=== PATIENT | female | born 1980 ===

== ENCOUNTER 2018-03-27 09:20 | Inpatient (IN) | payer OTHER ==
[~2018-03-27] VITALS: Ht 162.6 cm; Wt 115.5 kg
[2018-03-27] VITALS (28 sets, daily range): BP systolic 95–148; BP diastolic 42–83; PULSE 74–127; TEMP 98–99
[2018-03-27] MEDS ORDERED: PRENATAL MVI (10:02)
[2018-03-27 10:25] LABS: BASO % 0.2 % (0.0-2.0); EOS # 0.1 (0.0-0.7); EOS % 0.6 % (0-4.0); GRAN % 78.3 % (42.2-75.2); HEMOGLOBIN 12.4 g/dl (12.5-16.0); LYMPH # 1.9 (1.2-3.4); LYMPH % 13.3 % (20.0-51.0); MEAN CELL VOLUME 83 fl (80.0-100.0); MEAN CORPUSCULAR HEMOGLOBIN 28 pg (27.0-31.0); MEAN CORPUSCULAR HGB CONC 34 g/dl (33.0-37.0); MEAN PLATELET VOLUME 9.4 fl (7.4-10.4); MONO # 0.9 (0.1-0.6); MONO % 6.5 % (1.7-9.3); PLATELET COUNT 274 K/mm3 (130-400); RED BLOOD COUNT 4.47 M/mm3 (4.10-5.30); REDCELL DISTRIBUTION WIDTH-CV 14.3 % (11.5-14.5)
[2018-03-27 10:56] LABS: HIV 1/2 Antibodies Non-Reactive; HIV-1p24 Antigen Non-Reactive
[2018-03-27 16:28] LABS: COLLECTION METHOD CATHETER
[2018-03-27 16:38] LABS: PH 6 (5-8); URINE APPEARANCE Hazy; URINE BACTERIA None Seen /hpf; URINE BILIRUBIN Negative (NEGATIVE); URINE BLOOD 2+ (NEGATIVE); URINE CALCIUM OXALATE CRYSTAL Present /hpf; URINE COLOR Yellow; URINE GLUCOSE Negative (NEGATIVE); URINE KETONE Negative (NEGATIVE); URINE LEUKOCYTE ESTERASE 1+ (NEGATIVE); URINE NITRATE Negative (NEGATIVE); URINE PROTEIN(semi-quant) Negative (NEGATIVE); URINE RBC 0-2 /hpf; URINE UROBILINOGEN Negative (NEGATIVE)
[2018-03-27 17:40] LABS: TRICYCLIC ANTIDEPRESS URINE NEGATIVE
[2018-03-27 22:36] LABS: HEPATITIS B SURFACE ANTIGEN Negative (())
[2018-03-27 23:04] LABS: RPR (VDRL) Non-reactive (())
[2018-03-28] VITALS: BP 109/50; PULSE 98; TEMP 97.7
[2018-03-28 08:00] VITALS: BP 105/51; PULSE 88; TEMP 97.6
[2018-03-28 12:00] VITALS: BP 114/64; PULSE 94; TEMP 97.8
[2018-03-28 16:30] VITALS: BP 142/85; PULSE 85; TEMP 97.8
[2018-03-28 19:40] VITALS: BP 131/82; PULSE 78; TEMP 97.8
[2018-03-29 06:30] VITALS: BP 126/76; PULSE 78; TEMP 97.6
[2018-03-29] MEDS ORDERED: IBU800 M1 PO (10:42)
[2018-03-29 16:45] VITALS: BP 137/88; PULSE 84; TEMP 98.2
== END 2018-03-29 17:15 | disposition home or self-care (01) | DRG 775 ==
LOC: LDRO 09:20 → LDR 09:45 → OB 18:00
PROVIDERS: Obstetrics & Gynecology
PROC: 10D07Z6 Extraction of Products of Conception, Vacuum, Via Natural or Artificial Opening (ICD-10-PCS; principal; 2018-03-27)
PROC: 0UQGXZZ Repair Vagina, External Approach (ICD-10-PCS; 2018-03-27)
DX: O76 Abnormality in fetal heart rate and rhythm complicating labor and delivery (principal); O71.4 Obstetric high vaginal laceration alone; Z3A.39 39 weeks gestation of pregnancy; Z37.0 Single live birth; Z22.330 Carrier of Group B streptococcus
CPT/HCPCS: J2540; J7120